=== PATIENT | female | born 1945 ===

== ENCOUNTER 2017-05-15 07:54 | Day surgery (SDC) | payer MEDICARE ==
[2017-05-09 08:42] VITALS: BMI 29.2
[2017-05-15] MEDS ORDERED: Propofol 10 mg/ml Inj (20 ML) ONE (09:24)
[2017-05-15] MEDS ORDERED: Etomidate 20 mg/10ml Inj IV ONE (09:28)
[2017-05-15] MEDS ORDERED: Lidocaine 2% Inj (20ml) ONE (09:28)
[2017-05-15] MEDS ORDERED: Sodium Chloride 0.9% 1,000 ML IV SCH (10:00)
[2017-05-15 10:25] VITALS: RESP 16
[2017-05-15 10:38] VITALS: BP 118/68; PULSE 67; TEMP 98.4; O2SAT 97
== END 2017-05-15 11:24 | disposition home or self-care (01) ==
LOC: ENDO 07:54
PROVIDERS: ATTEND Specialist
DX: Z12.11 Encounter for screening for malignant neoplasm of colon (principal); K57.30 Diverticulosis of large intestine without perforation or abscess without bleeding; K64.8 Other hemorrhoids; I10 Essential (primary) hypertension; M19.90 Unspecified osteoarthritis, unspecified site